=== PATIENT | male | born 1980 | race Caucasian/White ===

== ENCOUNTER 2017-06-06 16:36 | Emergency (ER) | payer MEDICAID, OTHER ==
[~2017-06-06] VITALS: Ht 157.5 cm; Wt 79.0 kg
[2017-06-06 16:42] VITALS: Ht 157.5 cm; Wt 79.0 kg
[2017-06-06] MEDS ORDERED: KETOROLAC 15 MG INJ IM STA (19:10)
--- NOTE | 2017-06-06 19:10 | ERD ---
ER Documentation Chief Complaint Date/Time DATE: 06/06/17 TIME: 19:08 Chief Complaint back pain HPI This 37-year-old male patient presents to emergency department with complaint of low back pain x 3 days , pt works in construction , denies alteration in her bladder. Patient denies any known injury. Denies numbness or tingling radiating down either side of the leg ROS All systems reviewed and are negative except as per history of present illness. Allergies Allergies: Coded Allergies: No Known Allergy (Unverified , 06/06/17) PMhx/Soc Medical and Surgical Hx: pt denies Medical Hx, pt denies Surgical Hx History of Surgery: No Anesthesia Reaction: No Hx Neurological Disorder: No Hx Respiratory Disorders: No Hx Cardiac Disorders: No Hx Psychiatric Problems: No Hx Miscellaneous Medical Probl: Yes (anxiety) Hx Alcohol Use: No (stop drinking) Hx Substance Use: No Hx Tobacco Use: No Physical Exam Vitals Vital Signs Date Time Temp Pulse Resp B/P Pulse Ox O2 Delivery O2 Flow Rate FiO2 06/06/17 16:42 98.1 72 18 126/72 99 Vitals stable, triage notes reviewed Physical Exam Const: Well-nourished well-appearing well-hydrated 37-year-old male patient no acute distress Head: Eyes: ENT: Neck: Resp: Cardio: Abd: Soft, non tender, non distended. No McBurney's point tenderness, no epigastric tenderness, no pelvic tenderness, no CVA tenderness Skin: No petechiae or rashes Back Exam: Skin: No bruising or rash Compartments: Soft Motor: Normal flexion and extension of bilateral hip/knee/ ankle/foot straight leg rises if equivocal at 80 on the left produces back pain. Sensation: Intact to light touch throughout Bones: No midline TTP Ext: No cyanosis, or edema Neur: Awake and alert Psych: Normal Mood and Affect Results 24 hrs Current Medications Medications (Trade) Dose Ordered Sig/Annika Route PRN Reason Start Time Stop Time Status Last Admin Dose Admin Ketorolac Tromethamine (Toradol) 15 mg ONCE STAT IM 06/06/17 19:10 06/06/17 19:12 DC 06/06/17 19:18 Diazepam (Valium) 5 mg ONCE ONCE PO 06/06/17 19:30 06/06/17 19:31 DC 06/06/17 19:18 Procedures/MDM This 37-year-old male patient presents to emergency department for evaluation of back pain, pain started 3 days ago, patient denies history of back pain, injury, reports he does work in construction and lifts heavy equipment and objects. Patient denies any alteration in bowel or bladder, denies any dysuria. Emergency room course includes a history and physical exam positive for lumbar pain, straight leg rises produce pain at 80 this is an equivocal finding, I do not feel a lumbar x-ray is indicated at this time, plan to treat patient with Toradol 15 mg intramuscularly, 5 mg of Valium, patient reassessed after 30 minutes with improvement in low back pain. Plan to discharge patient home with Naprosyn 500 mg 1 tab p.o. twice daily 10 days, Valium 5 mg every 8 hours as needed myopathy. Follow-up with primary care physician in 1 week if symptoms fail to improve as anticipated, possible referral to physical therapy, return to emergency department for worsening of back pain, urine or fecal incontinence. Patient is stable with no new complaints during ER course, clinically there is no current evidence to suggest cauda equina syndrome, vertebral fracture, herniated disc, spinal mass, spinal infection or any other emergent condition appearing to require further evaluation or hospitalization. I feel the patient is stable for discharge at this time. I have discussed results, examination findings, the treatment plan with the patient and family present prior to discharge. Indications for emergent reevaluation, side effects of medication were also discussed. All questions were answered. Patient verbalizes understanding and agrees with plan of care. Departure Diagnosis: Primary Impression: Lumbar back pain Chronicity: acute Back pain laterality: bilateral Sciatica presence: without sciatica Qualified Code: M54.5 - Acute bilateral low back pain without sciatica Condition: Good Patient Instructions: Causes of Lumbar (Low Back) Pain [facility] Additional Instructions: Thank you for for coming to [facility] for your care today. Please ask your nurse or provider if you have questions about your care today and do not leave until all your questions have been answered. Please use any medications given as directed and follow-up with your doctor (or the doctor you were referred to) in the next 2-3 days. If you do not have a primary care doctor you may follow up at the [facility] (listed below). You may also use motrin and tylenol as needed for fever and/or pain unless instructed otherwise by your provider or nurse. Indications for more urgent follow-up have been discussed, but you may return to the Emergency Department at ANY time for any worrisome or worsening symptoms. If you have abdominal pain, please know that no test or exam you received is perfect and you should follow up within 8 hours for continued pain. If you had any imaging studies today, such as an X-Ray or CT Scan, these studies will be reviewed later by a radiologist. You will be called if there are important findings that were not identified today, so make sure the contact information you provided at registration is correct. If you received any narcotic pain control medicine today, such as Vicodin, Morphine or Dilaudid, your coordination and judgment may be affected for a number of hours. Please do not drive or operate heavy machinery, and you may want someone to assist you at home. If you were given a prescription for narcotic medication, be aware that it is very addictive- use sparingly and only if necessary. NGA RATLIFF Jun 06, 2017 19:10
[2017-06-06] MEDS ORDERED: DIAZEPAM 5 MG TAB PO ONE (19:30)
[2017-06-06] MEDS ORDERED: NAPR-260 PO (20:52)
[2017-06-06] MEDS ORDERED: DIAZ-90 PO (20:52)
== END 2017-06-06 21:08 | disposition home or self-care (01) ==
LOC: FTE 16:36
DX: M54.5 Low back pain (principal)
CPT/HCPCS: 96372; J1885; Z7502; Z7610